=== PATIENT | male | born 1985 | race Caucasian/White ===

== ENCOUNTER 2017-02-22 17:41 | Emergency (ER) | payer OTHER ==
[2017-02-22 17:52] VITALS: BP 116/83
[2017-02-22] MEDS ORDERED: predniSONE 20 MG TABLET PO STA (18:03)
--- NOTE | 2017-02-22 18:05 | ED Physician Documentation ---
History of Present Illness - Stated complaint Stated Complaint: ALLERGIC REACTION/HAND SWEELING - Chief complaint Chief Complaint: Allergic Rx - History obtained from History obtained from: Patient - History of Present Illness Timing: Other (He started bupropion about 2 weeks ago. Today at 3 AM he developed myalgias in the upper extremities and joint pains there as well as well as hives in the forearms. He saw his doctor today who told him to stop the bupropion and started him on Zyrtec but he has not had any relief. There is no associated throat swelling or shortness of breath.) Review of Systems Constitutional: reports: Myalgias. denies: Fever, Chills Nose: denies: Rhinorrhea / runny nose, Congestion Cardiac: denies: Chest pain / pressure, Palpitations Respiratory: denies: Dyspnea, Cough PD PAST MEDICAL HISTORY - Present Medications Home Medications: Ambulatory Orders Medication Instructions Recorded Confirmed buPROPion [Wellbutrin Sr] 100 mg PO BID 02/22/17 02/22/17 hydrOXYzine PAMOATE [Vistaril] 1 - 2 tab PO Q6H PRN #20 capsule 02/22/17 predniSONE [Deltasone] 60 mg PO DAILY 5 Days tablet 02/22/17 - Allergies Allergies/Adverse Reactions: Allergies Allergy/AdvReac Type Severity Reaction Status Date / Time amoxicillin AdvReac Nausea Verified 02/22/17 17:56 - Social History Does the pt smoke?: Yes Smoking Status: Current every day smoker Does the pt drink ETOH?: Yes PD ED PE NORMAL - Vitals Vital signs reviewed: Yes - General General: Alert and oriented X 3, No acute distress - HEENT HEENT: Pharynx benign - Respiratory Respiratory: No respiratory distress, Clear bilaterally - Derm Derm: Other (There are a few urticaria to the anterior forearms and he has mild swelling of both hands that seems centered over the metacarpal phalangeal joints with full range of motion.) - Neuro Neuro: Alert and oriented X 3, Normal speech - Psych Psych: Normal mood, Normal affect Results - Vitals Vitals: Vital Signs - 24 hr 02/22/17 17:48 Temperature 36.6 C Heart Rate 97 Respiratory 17 Rate Blood Pressure 116/83 H O2 Saturation 97 Oxygen O2 Source Room air Departure - Departure Disposition: 01 Home, Self Care Clinical Impression: Allergic urticaria Condition: Good Record reviewed to determine appropriate education?: Yes Instructions: ED Drug React Allergic Prescriptions: hydrOXYzine PAMOATE [Vistaril] 1 - 2 tab PO Q6H PRN #20 capsule PRN Reason: Itching predniSONE [Deltasone] 60 mg PO DAILY 5 Days tablet Comments: Follow-up with your physician for replacement medication and recheck, further workup as well if you have recurrent symptoms despite stopping the bupropion. Return if worse. Your blood pressure was elevated today on check into the emergency department. This does not mean that you have hypertension, it is a common phenomenon to come to the emergency department and have elevated blood pressure. I recommend that she see your primary care physician within the week to have it rechecked when you are feeling better.
[2017-02-22] MEDS ORDERED: predniSONE 20 MG TABLET ONE (18:11)
== END 2017-02-22 18:14 | disposition home or self-care (01) ==
LOC: ED 17:41
DX: L50.0 Allergic urticaria (principal); R03.0 Elevated blood-pressure reading, without diagnosis of hypertension; F17.200 Nicotine dependence, unspecified, uncomplicated
CPT/HCPCS: 99283; J7512